=== PATIENT | female | born 1940 | race Caucasian/White ===

== ENCOUNTER 2017-12-01 06:08 | Emergency (ER) | payer MEDICARE, BC ==
[~2017-12-01] VITALS: Ht 177.8 cm; Wt 72.6 kg
[2017-12-01] MEDS ORDERED: EPIPEN0.3 MG/0.3 IM (06:23)
[2017-12-01] MEDS ORDERED: CONEST.625 (06:25)
[2017-12-01] MEDS ORDERED: Pepcid40 MG PO (07:06)
[2017-12-01] MEDS ORDERED: Prednisone20 MG PO (07:06)
== END 2017-12-01 07:36 | disposition home or self-care (01) ==
LOC: ER 06:08
DX: T63.441A Toxic effect of venom of bees, accidental (unintentional), initial encounter (principal); Z91.030 Bee allergy status; Z79.899 Other long term (current) drug therapy
CPT/HCPCS: 90471; 90714; 99283; Q0163

== ENCOUNTER → 2018-11-03 | Outpatient (CLI) | payer MEDICARE, BC ==
[~2018-11-03] MED LIST: CONEST.625; EPIPEN0.3 MG/0.3 IM; Pepcid40 MG PO; Prednisone20 MG PO
== END | disposition home or self-care (01) ==
LOC: LAB SHORT 08:37 → LAB EV 08:37
DX: L72.3 Sebaceous cyst (principal)
CPT/HCPCS: 87070; 87205

== ENCOUNTER 2021-03-01 10:00 | Emergency (ER) | payer MEDICARE, BC ==
[~2021-03-01] VITALS: Ht 177.8 cm; Wt 51.7 kg
[2021-03-01] MEDS ORDERED: Zovirax800 MG PO (11:02)
[2021-03-01] MEDS ORDERED: Norco 5-325 Ta1 EACH PO (11:02)
== END 2021-03-01 11:07 | disposition home or self-care (01) ==
LOC: ER 10:00
DX: B02.9 Zoster without complications (principal); Z91.030 Bee allergy status; Z79.899 Other long term (current) drug therapy
CPT/HCPCS: 99282; A9270